=== PATIENT | female | born 1980 | race Caucasian/White ===

== ENCOUNTER 2024-11-07 02:43 | Emergency (ER) | payer OTHER, SELFPAY ==
[~2024-11-07] VITALS: Ht 165.1 cm; Wt 47.5 kg
[~2024-11-07 02:43] MED LIST: UNRESOLVED CLARIFICATION ENTRY XX SCH
[2024-11-07] MEDS: HALOPERIDOL LACTATE 5MG/ML VIAL IM ONE (03:08)
[2024-11-07] MEDS: diphenhydrAMINE 50MG/ML VIAL IM ONE (03:08)
[2024-11-07] MEDS: LORazepam 2 MG/ML 1ML VIAL IM ONE (03:09)
[2024-11-07 03:41] LABS: BASO % 0.5 % (0.0-1.0); EOS # 0.1 10^3/uL (0.0-0.5); EOS % 0.6 % (0.0-3.0); HEMATOCRIT 42.1 % (36.0-47.0); HEMOGLOBIN 14.4 g/dl (12.0-15.5); LYMPH % 36.8 % (24.0-44.0); MEAN CORPUSCULAR HEMOGLOBIN 33.4 pg (27.0-33.0); MEAN CORPUSCULAR HGB CONC 34.2 g/dl (32.0-36.5); MEAN CORPUSCULAR VOLUME 97.7 fl (80.0-96.0); MONO # 0.6 10^3/uL (0.0-0.8); MONO % 6.9 % (2.0-8.0); NEUTROPHILS # 4.5 10^3/uL (1.5-8.5); PLATELET COUNT, AUTOMATED 360 10^3/uL (150-450); RED BLOOD COUNT 4.31 10^6/uL (4.00-5.40); WHITE BLOOD COUNT 8.2 10^3/uL (4.0-10.0)
[2024-11-07 03:55] LABS: SALICYLATE LEVEL < 3.0 MG/DL (<30)
[2024-11-07 03:56] LABS: ALBUMIN 4.7 G/DL (3.2-5.2); ALKALINE PHOSPHATASE 70 U/L (35-104); ALT/SGPT 26 U/L (7.0-40); AST/SGOT 21 U/L (<34); BILIRUBIN,DIRECT < 0.1 MG/DL (<0.4); BILIRUBIN,TOTAL 0.4 MG/DL (0.3-1.2); BLOOD UREA NITROGEN 12 MG/DL (9-23); CALCIUM LEVEL 9.3 MG/DL (8.5-10.1); CARBON DIOXIDE LEVEL 22 MMOL/L (20-31); CHLORIDE LEVEL 106 MMOL/L (98-107); CPK CREATINE PHOSPHOKINASE 150 U/L (34-145); CREATININE FOR GFR 0.63 MG/DL (0.55-1.30); GLOMERULAR FILTRATION RATE > 60.0 (>58); GLUCOSE, FASTING 181 MG/DL (60-100); POTASSIUM SERUM 4.1 MMOL/L (3.5-5.1); SODIUM LEVEL 143 MMOL/L (136-145); TOTAL PROTEIN 8.2 G/DL (5.7-8.2)
[2024-11-07 03:58] LABS: THYROID STIMULATING HORMONE 4.614 uIU/ML (0.55-4.78)
[2024-11-07 04:24] LABS: ETHYL ALCOHOL (ETHANOL) 0.396 % (0.000-0.010)
[2024-11-07] MEDS: NS (Normal Saline) 0.9% 1,000 ML IV ONE (06:34)
[2024-11-07 08:20] LABS: AMPHETAMINES LEVEL URINE NEGATIVE (NEGATIVE); BARBITURATES URINE NEGATIVE (NEGATIVE); BENZODIAZEPINES URINE NEGATIVE (NEGATIVE); COCAINE METABOLITE URINE NEGATIVE (NEGATIVE)
[2024-11-07 08:21] LABS: CANNABINOIDS URINE NEGATIVE (NEGATIVE); METHADONE URINE NEGATIVE (NEGATIVE); OPIATES URINE NEGATIVE (NEGATIVE); PHENCYCLIDINE URINE NEGATIVE (NEGATIVE)
[2024-11-07] MEDS: ACETAMINOPHEN 325 MG TAB PO ONE (10:36)
[2024-11-07 13:42] VITALS: TEMP 97.2
[2024-11-07 15:43] VITALS: BP 147/75; O2SAT 99
== END 2024-11-07 15:45 | disposition home or self-care (01) ==
LOC: M ED 02:43 → EDBD 02:43 → M ED 15:45
DX: S00.83XA Contusion of other part of head, initial encounter (principal); F10.129 Alcohol abuse with intoxication, unspecified; R00.0 Tachycardia, unspecified; I45.81 Long QT syndrome; Y92.9 Unspecified place or not applicable; Y93.89 Activity, other specified; Y99.9 Unspecified external cause status
CPT/HCPCS: 70450; 70486; 72125; 80048; 80076; 80143; 80307; 82077; 82550; 84443; 85025; 93005; 93041; 94760; 96360; 96361; 96372; 99285; J1200; J1630; J2060

== ENCOUNTER → 2025-05-28 | Outpatient (CLI) | payer MEDICAID | LOC: M OUTALCOH 12:05 | PROVIDERS: ATTEND Psychiatry & Neurology Psychiatry | DX: Z03.89 Encounter for observation for other suspected diseases and conditions ruled out (principal) ==